=== PATIENT | male | born 1965 | race Caucasian/White ===

== ENCOUNTER 2024-01-25 11:07 | Emergency (ER) | payer OTHER ==
[~2024-01-25] VITALS: Ht 177.8 cm; Wt 104.3 kg
[2024-01-25] VITALS (16 sets, daily range): BP systolic 124–153; BP diastolic 67–82
[2024-01-25] MEDS ORDERED: Diph, Acellular Pertussis, Tet 0.5 ML/VIAL (Tdap) SDV IM ONE (12:10)
[2024-01-25] MEDS ORDERED: LIDOCAINE VISCOUS 2% 15 ML UDC PO ONE (12:15)
[2024-01-25] MEDS ORDERED: AMOX/K CLAV875 M1 PO (16:26)
== END 2024-01-25 16:56 | disposition home or self-care (01) | DRG 156 ==
LOC: ED 11:07
PROC: 0HQ1XZZ Repair Face Skin, External Approach (ICD-10-PCS; principal; 2024-01-25)
DX: S01.21XA Laceration without foreign body of nose, initial encounter (principal); S02.2XXA Fracture of nasal bones, initial encounter for closed fracture; I10 Essential (primary) hypertension; E78.5 Hyperlipidemia, unspecified; W01.0XXA Fall on same level from slipping, tripping and stumbling without subsequent striking against object, initial encounter